=== PATIENT | male | born 1955 | race Caucasian/White ===

== ENCOUNTER 2020-09-06 15:34 | Outpatient (CLI) | payer MEDICARE ==
[2020-09-06] MEDS ORDERED: AMPH15TA PO (16:15)
[2020-09-06] MEDS ORDERED: kratom PO (16:30)
== END 2020-09-06 23:59 | disposition home or self-care (01) ==
LOC: STAR 15:34
PROVIDERS: ATTEND Urology
DX: Z01.812 Encounter for preprocedural laboratory examination (principal); Z20.828 Contact with and (suspected) exposure to other viral communicable diseases; N20.0 Calculus of kidney; R94.31 Abnormal electrocardiogram [ECG] [EKG]
CPT/HCPCS: 87635; 93005